=== PATIENT | male | born 1985 | race Caucasian/White ===

== ENCOUNTER 2016-04-29 04:16 | Inpatient (IN) | payer OTHER ==
[~2016-04-29] VITALS: Ht 177.8 cm; Wt 74.0 kg
[2016-04-29] VITALS (16 sets, daily range): BP systolic 91–185; BP diastolic 69–113; PULSE 84–152; RESP 14–25; TEMP 98–98.7; O2SAT 96–100
[2016-04-29] MEDS ORDERED: DIPHTH/TETANUS/ACEL PERTUSSIS (BOOSTER) 0.5 ML VIAL/PFS IM ONE (04:20)
[2016-04-29] MEDS ORDERED: MIDAZOLAM HCL 5 MG/ML VIAL (1 ML) ONE ×2 (04:26→04:57)
[2016-04-29] MEDS ORDERED: MORPHINE SULFATE 8 MG/ML INJ ONE (04:26)
[2016-04-29] MEDS ORDERED: ONDANSETRON HCL 4 MG/2 ML VIAL ONE (04:26)
[2016-04-29] MEDS ORDERED: LIDOCAINE 1%/EPINEPHrine 1:100,000 SOLN 20 ML VIAL ONE (04:29)
[2016-04-29 04:45] LABS: AUTOMATED NEUTROPHIL # 8.8 TH/MM3 (1.8-7.7); BASOPHIL # 0.1 TH/MM3 (0-0.2); BASOPHIL % 0.5 % (0.0-2.0); EOSINOPHIL # 0.1 TH/MM3 (0-0.4); EOSINOPHIL % 0.6 % (0.0-4.0); HEMATOCRIT 40.9 % (39.0-51.0); HEMO FLAGS DIFF FINAL; LYMPH % 31.6 % (9.0-44.0); LYMPHOCYTE # 4.4 TH/MM3 (1.0-4.8); MEAN CORPUSCULAR HEMOGLOBIN 29.6 PG (27.0-34.0); MEAN CORPUSCULAR HGB CONC 34.4 % (32.0-36.0); MONO % 4.6 % (0.0-8.0); NEUT % 62.7 % (16.0-70.0); PLATELET COUNT 285 TH/MM3 (150-450); RED BLOOD COUNT 4.75 MIL/MM3 (4.50-5.90); RED CELL DISTRIBUTION WIDTH 13.4 % (11.6-17.2); WHITE BLOOD COUNT 13.9 TH/MM3 (4.0-11.0)
[2016-04-29 04:48] LABS: APTT (PATIENT) 26.6 SEC (24.3-30.1); PROTHROMBIN TIME - PATIENT 11.6 SEC (9.8-11.6)
[2016-04-29 04:49] LABS: I-STAT POTASSIUM 3.5 MMOL/L (3.5-4.9)
[2016-04-29] MEDS ORDERED: NALOXONE HCL 0.4 MG/ML AMP IV PRN (05:00)
[2016-04-29] MEDS ORDERED: SODIUM CHLORIDE 0.9% FLUSH 5 ML FLUSH IVF PRN (05:00)
[2016-04-29] MEDS ORDERED: PROPOFOL 1000 MG/100 ML INJ 100 ML IV SCH (05:00)
[2016-04-29] MEDS ORDERED: Post-op Orders (for Pharmacy) MISC XX ONE (05:00)
[2016-04-29] MEDS ORDERED: fentaNYL DRIP 250 ML IV SCH (05:00)
[2016-04-29] MEDS ORDERED: ONDANSETRON HCL 4 MG/2 ML VIAL IV PRN (05:00)
[2016-04-29] MEDS ORDERED: IOHEXOL 350 MG/ML 10 ML VIAL (for RAD DIAG) IV ONE (05:12)
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
--- NOTE | 2016-04-29 05:32 | RADRPT ---
EXAM DATE/TIME: 04/29/2016 04:11 [facility] COMPARISON: No previous studies available for comparison. INDICATIONS : Post intubation and right side chest tube. MEDICAL HISTORY : None. SURGICAL HISTORY : None. ENCOUNTER: Subsequent ACUITY: 1 day PAIN SCORE: Non-responsive. LOCATION: Bilateral chest FINDINGS: Endotracheal tube tip at the inferior margin of the clavicles. Heart and mediastinal contours are nor mal. Right-sided pneumothorax is present and a right-sided chest tube is present and the tip overlies the right lung apex. Comminuted right clavicular fracture is seen, and extensive subcutaneous emphys jenifer along the right chest noted. Patchy opacity in the right upper lobe noted. CONCLUSION: Endotracheal tube and chest tubes as above with right-sided pneumothorax present on the right lateral mid to upper chest and right lung apex. Subcutaneous emphysema. Charlie Hernandez MD on April 29, 2016 at 5:29 Board Certified Radiologist. This report was verified electronically.
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
[2016-04-29 05:53] LABS: AMPHETAMINE, URINE NEG (NEG); BARBITURATES, URINE NEG (NEG); COCAINE, URINE NEG (NEG)
[2016-04-29] MEDS: SODIUM CHLOR 0.9% 1000 ML INJ 1,000 ML IV SCH ×3 (06:16→23:06)
[2016-04-29] MEDS: PANTOPRAZOLE SODIUM 40 MG VIAL IV SCH (06:28)
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
[2016-04-29] MEDS: DOCUSATE SODIUM 100 MG CAP PO SCH ×2 (07:27→19:47)
[2016-04-29] MEDS ORDERED: LORazepam 2 MG/ML VIAL IV PUSH PRN (07:30)
[2016-04-29] MEDS ORDERED: RESP: ALBUTEROL 2.5 MG/IPRATROPIUM 0.5 MG NEB (PRN) NEB (07:30)
[2016-04-29] MEDS: PROPOFOL 1000 MG/100 ML INJ 100 ML IV SCH ×3 (07:42→14:45)
[2016-04-29] MEDS ORDERED: CHLORHEXIDINE 0.12% (ORAL KIT) 15 ML CUP MT SCH (08:00)
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
[2016-04-29] MEDS: CHLORHEXIDINE 0.12% (ORAL KIT) 15 ML CUP MT SCH ×2 (08:20→19:14)
[2016-04-29] MEDS: RESP: ALBUTEROL 2.5 MG/IPRATROPIUM 0.5 MG NEB (SCH) NEB ×3 (08:33→19:23)
[2016-04-29] MEDS: SODIUM CHLORIDE 0.9% FLUSH 5 ML FLUSH IVF SCH ×2 (09:39→19:48)
[2016-04-29 09:58] LABS: MAGNESIUM 2.1 MG/DL (1.5-2.5)
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
[2016-04-29] MEDS: VALPROATE INJ 250 MG in SODIUM CHLORIDE 0.9% INJ 100 ML IV SCH ×2 (11:48→19:47)
[2016-04-29] MEDS ORDERED: MULTIVITAMIN INJ 10 ML, THIAMINE INJ 100 MG, FOLIC ACID INJ 1 MG in SODIUM CHLORID 0.9%... IV ONE (12:00)
[2016-04-29] MEDS: oxyCODONE/ACETAMINOPHEN 5 MG/325 MG TAB PO PRN (20:18)
[2016-04-30] VITALS (8 sets, daily range): BP systolic 125–137; BP diastolic 73–91; PULSE 88–114; RESP 16–18; TEMP 98–100; O2SAT 93–100
[2016-04-30] MEDS: oxyCODONE/ACETAMINOPHEN 5 MG/325 MG TAB PO PRN ×3 (00:13→09:39)
[2016-04-30] MEDS: RESP: ALBUTEROL 2.5 MG/IPRATROPIUM 0.5 MG NEB (SCH) NEB (03:17)
[2016-04-30] MEDS: PANTOPRAZOLE SODIUM 40 MG VIAL IV SCH (04:12)
[2016-04-30 04:31] LABS: AUTOMATED NEUTROPHIL # 4.3 TH/MM3 (1.8-7.7); BASOPHIL % 0.2 % (0.0-2.0); EOSINOPHIL % 0.3 % (0.0-4.0); HEMATOCRIT 27.3 % (39.0-51.0); HEMO FLAGS DIFF FINAL; LYMPH % 24.9 % (9.0-44.0); LYMPHOCYTE # 1.7 TH/MM3 (1.0-4.8); MEAN CELL VOLUME 85.6 FL (80.0-100.0); MEAN CORPUSCULAR HEMOGLOBIN 30.4 PG (27.0-34.0); MEAN CORPUSCULAR HGB CONC 35.5 % (32.0-36.0); MONO % 10.8 % (0.0-8.0); NEUT % 63.8 % (16.0-70.0); PLATELET COUNT 148 TH/MM3 (150-450); RED BLOOD COUNT 3.19 MIL/MM3 (4.50-5.90); RED CELL DISTRIBUTION WIDTH 13.6 % (11.6-17.2); WHITE BLOOD COUNT 6.8 TH/MM3 (4.0-11.0)
[2016-04-30 04:58] LABS: ALKALINE PHOSPHATASE 40 U/L (45-117); ALT (GPT) 78 U/L (12-78); ANION GAP 7 MEQ/L (5-15); AST (GOT) 127 U/L (15-37); BICARBONATE 27.3 MEQ/L (21.0-32.0); BLOOD UREA NITROGEN 10 MG/DL (7-18); CHLORIDE 107 MEQ/L (98-107); GLOMERULAR FILTRATION RATE 107 ML/MIN (>89); POTASSIUM 3.5 MEQ/L (3.5-5.1); SODIUM (NA) 141 MEQ/L (136-145); TOTAL BILIRUBIN ADULT 1.1 MG/DL (0.2-1.0)
--- NOTE | 2016-04-30 07:52 | MP ---
cc: GLEN NERI MD AKA: Filemon Vides DATE OF PROCEDURE 04/29/2016 PREOPERATIVE DIAGNOSIS Trauma to the chest, right-sided pneumothorax. POSTOPERATIVE DIAGNOSIS Trauma to the chest, right-sided pneumothorax. OPERATIVE PROCEDURE Right chest tube placement. SURGEON Dr. Neri ANESTHESIA 1% Xylocaine, 3 mg of Versed and 4 mg of morphine IV. PROCEDURE The patient is prepped and draped in the usual fashion, the area infiltrated with 1% Xylocaine, about 15 cc, between the fifth and sixth rib in the midaxillary line. The patient is given 4 mg of morphine and 3 mg of Versed and incision is made in the lateral chest, deepened now with a hemostat into the pleural cavity. Upon entrance of the pleural cavity, there is a gifford of air and then a 32-Yoruba chest tube is inserted in the posterior sulcus, sutured in place with 0-silk, connected to the Pleur-Evac. The patient has a small air leak with bubbling of the air and about 20 cc of blood. Glen HAIDER/DEANNE /5:15 AM /7:47 AM
--- NOTE | 2016-04-30 08:18 | RADRPT ---
EXAM DATE/TIME: 04/30/2016 06:52 [facility] COMPARISON: CHEST SINGLE AP, April 29, 2016, 4:11. INDICATIONS : Right pneumothorax. MEDICAL HISTORY: None. SURGICAL HISTORY: Chest tube, right. ENCOUNTER: Subsequent ACUITY: 2 days PAIN SCORE: 6/10 LOCATION: Right chest FINDINGS: There is no evidence of pneumothorax. A right-sided chest tube remains in good position. There is i nterval decrease in the subcutaneous emphysema within the right chest wall. An acute displaced mid c lavicular fracture is again noted on the right. Right basilar atelectasis is noted. The left lung i s clear. The heart is normal. CONCLUSION: 1. No pneumothorax. 2. Interval decrease in the subcutaneous emphysema in the right chest wall. 3. Bibasilar atelectasis. 4. Acute displaced mid clavicular fracture on the right. Ashish Wiggins MD on April 30, 2016 at 8:07 Board Certified Radiologist. This report was verified electronically.
[2016-04-30] MEDS ORDERED: VALPROIC ACID 250 MG CAP PO SCH (09:00)
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
[2016-04-30] MEDS: DOCUSATE SODIUM 50 MG/SENNA 8.6 MG TAB PO SCH ×2 (09:39→22:07)
[2016-04-30] MEDS: FAMOTIDINE 20 MG TAB PO SCH ×2 (09:39→22:06)
[2016-04-30] MEDS: DOCUSATE SODIUM 100 MG CAP PO SCH ×2 (09:40→22:06)
[2016-04-30] MEDS: KETOROLAC TROMETHAMINE 30 MG/ML (IVP) VIAL IV PUSH SCH ×3 (09:40→22:06)
[2016-04-30] MEDS: SODIUM CHLORIDE 0.9% FLUSH 5 ML FLUSH IVF SCH ×2 (09:41→21:00)
[2016-04-30] MEDS: METHOCARBAMOL 500 MG TAB PO SCH ×3 (09:43→22:08)
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
[2016-04-30] MEDS: LIDOCAINE HCL 5% PATCH TD SCH (11:56)
--- NOTE | 2016-04-30 14:29 | HHI.PR ---
Subjective Subjective Notes Feeling better Eating well Objective Vitals/I&O Vital Signs Date Time Temp Pulse Resp B/P Pulse Ox O2 Delivery O2 Flow Rate FiO2 04/30/16 12:00 98.2 101 18 130/79 93 04/30/16 10:00 21 04/29/16 22:40 Nasal Cannula 2.00 Labs Laboratory Tests Test 04/30/16 03:52 White Blood Count 6.8 Red Blood Count 3.19 Hemoglobin 9.7 Hematocrit 27.3 Mean Corpuscular Volume 85.6 Mean Corpuscular Hemoglobin 30.4 Mean Corpuscular Hemoglobin 35.5 Concent Red Cell Distribution Width 13.6 Platelet Count 148 Mean Platelet Volume 7.6 Neutrophils (%) (Auto) 63.8 Lymphocytes (%) (Auto) 24.9 Monocytes (%) (Auto) 10.8 Eosinophils (%) (Auto) 0.3 Basophils (%) (Auto) 0.2 Neutrophils # (Auto) 4.3 Lymphocytes # (Auto) 1.7 Monocytes # (Auto) 0.7 Eosinophils # (Auto) 0.0 Basophils # (Auto) 0.0 CBC Comment DIFF FINAL Differential Comment Sodium Level 141 Potassium Level 3.5 Chloride Level 107 Carbon Dioxide Level 27.3 Anion Gap 7 Blood Urea Nitrogen 10 Creatinine 0.85 Estimat Glomerular Filtration 107 Rate Random Glucose 109 Calcium Level 8.3 Phosphorus Level 1.8 Magnesium Level 2.0 Total Bilirubin 1.1 Aspartate Amino Transf 127 (AST/SGOT) Alanine Aminotransferase 78 (ALT/SGPT) Alkaline Phosphatase 40 Total Protein 5.6 Albumin 3.2 Radiology Last Impressions Chest X-Ray 04/30/16 0600 Signed Impressions: Service Date/Time: Saturday, April 30, 2016 06:52 - CONCLUSION: 1. No pneumothorax. 2. Interval decrease in the subcutaneous emphysema in the right chest wall. 3. Bibasilar atelectasis. 4. Acute displaced mid clavicular fracture on the right. Ashish Wiggins MD Pelvis X-Ray 04/29/16417 Signed Impressions: Service Date/Time: Friday, April 29, 2016 04:11 - CONCLUSION: No acute disease. Charlie Hernandez MD Head CT 04/29/16417 Signed Impressions: Service Date/Time: Friday, April 29, 2016 04:59 - CONCLUSION: Normal appearance of the brain. Scalp laceration and soft tissue swelling. Charlie Hernandez MD Chest CT 04/29/16417 Signed Impressions: Service Date/Time: Friday, April 29, 2016 05:04 - CONCLUSION: 1. Scattered areas of pulmonary consolidation characteristic of contusion. 2. Moderate right-sided pneumothorax with chest tube in place. Associated extensive subcutaneous emphysema. 3. Right rib fractures and clavicular fracture. 4. L2 vertebral body fracture. Charlie Hernandez MD Cervical Spine CT 04/29/16417 Signed Impressions: Service Date/Time: Friday, April 29, 2016 04:59 - CONCLUSION: Right rib fractures. No evidence for cervical spine fracture. Right apical pneumothorax. Charlie Hernandez MD Abdomen/Pelvis CT 04/29/16417 Signed Impressions: Service Date/Time: Friday, April 29, 2016 05:04 - CONCLUSION: 1. Right- sided pneumothorax with associated subcutaneous emphysema and pulmonary contusion. 2. L2 vertebral body fracture. Charlie Hernandez MD Narrative Exam GENERAL: 30 year old well-nourished, well developed male lying in bed. SKIN: Warm and dry. HEAD: Normocephalic. ENT: No nasal bleeding or discharge. Mucous membranes pink and moist. NECK: Trachea midline. No JVD. CARDIOVASCULAR: Regular rate and rhythm. RESPIRATORY: No accessory muscle use. Lungs clear and diminished to auscultation. Breath sounds equal bilaterally. Right lateral CT in place to waterseal. No air leak. GASTROINTESTINAL: Abdomen soft, non-tender, nondistended. + BS. MUSCULOSKELETAL: Extremities without cyanosis, or edema. No obvious deformities. NEUROLOGICAL: Awake and alert. Normal speech. A/P Assessment and Plan INJURIES: RIGHT parietal scalp lac RIGHT rib fxs (1, 3, 4) RIGHT PTX / BLAIR w/ CT placement RIGHT clavicle fx Aspiration Pulmonary contusions L2 fx (non-op) Diet: Regular, tolerating Pulmonary: Nebs. IS, encourage patient use. Pain: Percocet. Robaxin. Lidoderm patch. Toradol. Pain controlled. Activity: OOB with TLSO brace. PT and OT ordered. GI: Pepcid Bowel: Nuvia-colace 2 tabs. No BM yet. DVT: SCD's CXR from today shows no pneumothorax, no air leak noted. Chest tube placed to waterseal. Plan to DC CT tomorrow if CXR shows no PTX. Neurosurgery recommends TLSO brace when OOB for lumbar fracture. Plan of care discussed with patient and his father at bedside. Plan to discharge home in 1-2 days. Celso Lisa Apr 30, 2016 14:29
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
[2016-04-30] MEDS: IBUPROFEN 400 MG TAB PO SCH ×2 (16:07→22:08)
[2016-04-30] MEDS: REMOVE OLD PATCH T-DERMAL SCH (21:00)
[2016-05-01] VITALS: BP 143/97; PULSE 94; RESP 18; TEMP 97.1; O2SAT 100
[2016-05-01] MEDS: oxyCODONE/ACETAMINOPHEN 5 MG/325 MG TAB PO PRN (00:33)
[2016-05-01] MEDS: KETOROLAC TROMETHAMINE 30 MG/ML (IVP) VIAL IV PUSH SCH ×4 (03:00→20:21)
[2016-05-01] MEDS: METHOCARBAMOL 500 MG TAB PO SCH ×3 (05:30→22:23)
[2016-05-01 05:39] LABS: AUTOMATED NEUTROPHIL # 3.2 TH/MM3 (1.8-7.7); BASOPHIL % 0.6 % (0.0-2.0); EOSINOPHIL # 0.1 TH/MM3 (0-0.4); EOSINOPHIL % 2.6 % (0.0-4.0); HEMATOCRIT 25.2 % (39.0-51.0); HEMO FLAGS DIFF FINAL; LYMPH % 23.1 % (9.0-44.0); LYMPHOCYTE # 1.1 TH/MM3 (1.0-4.8); MEAN CELL VOLUME 85.4 FL (80.0-100.0); MEAN CORPUSCULAR HGB CONC 35.1 % (32.0-36.0); NEUT % 64.7 % (16.0-70.0); PLATELET COUNT 135 TH/MM3 (150-450); RED BLOOD COUNT 2.95 MIL/MM3 (4.50-5.90); RED CELL DISTRIBUTION WIDTH 13.1 % (11.6-17.2); WHITE BLOOD COUNT 4.9 TH/MM3 (4.0-11.0)
[2016-05-01] MEDS: IBUPROFEN 400 MG TAB PO SCH ×3 (05:42→22:00)
[2016-05-01 05:57] LABS: ALT (GPT) 62 U/L (12-78); ANION GAP 8 MEQ/L (5-15); AST (GOT) 91 U/L (15-37); BICARBONATE 25.4 MEQ/L (21.0-32.0); BLOOD UREA NITROGEN 9 MG/DL (7-18); CHLORIDE 108 MEQ/L (98-107); GLOMERULAR FILTRATION RATE 120 ML/MIN (>89); POTASSIUM 3.7 MEQ/L (3.5-5.1); SODIUM (NA) 141 MEQ/L (136-145)
[2016-05-01 05:59] LABS: ALKALINE PHOSPHATASE 37 U/L (45-117); TOTAL BILIRUBIN ADULT 1.3 MG/DL (0.2-1.0)
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
[2016-05-01 08:00] VITALS: BP 136/93; PULSE 85; RESP 18; TEMP 97.9; O2SAT 97
[2016-05-01] MEDS: DOCUSATE SODIUM 50 MG/SENNA 8.6 MG TAB PO SCH ×2 (08:26→20:22)
[2016-05-01] MEDS: FAMOTIDINE 20 MG TAB PO SCH ×2 (08:26→20:21)
[2016-05-01] MEDS: SODIUM CHLORIDE 0.9% FLUSH 5 ML FLUSH IVF SCH ×2 (08:26→20:25)
[2016-05-01] MEDS: DOCUSATE SODIUM 100 MG CAP PO SCH ×2 (08:26→20:22)
[2016-05-01] MEDS: LIDOCAINE HCL 5% PATCH TD SCH (08:26)
[2016-05-01 12:00] VITALS: BP 133/88; PULSE 88; RESP 18; TEMP 98.1; O2SAT 97
[2016-05-01 16:00] VITALS: BP 135/83; PULSE 82; RESP 19; TEMP 98.7; O2SAT 98
[2016-05-01] MEDS ORDERED: LACTULOSE SYRUP 20 GM/30 ML CUP PO ONE (17:00)
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
[2016-05-01 20:00] VITALS: BP 142/94; PULSE 87; RESP 18; TEMP 98.2; O2SAT 99
[2016-05-01] MEDS: REMOVE OLD PATCH T-DERMAL SCH (20:24)
[2016-05-02] VITALS: BP 132/89; PULSE 79; RESP 18; TEMP 97; O2SAT 100
[2016-05-02] MEDS: KETOROLAC TROMETHAMINE 30 MG/ML (IVP) VIAL IV PUSH SCH (03:00)
[2016-05-02] MEDS: METHOCARBAMOL 500 MG TAB PO SCH ×3 (05:33→21:34)
[2016-05-02] MEDS: IBUPROFEN 400 MG TAB PO SCH ×3 (05:33→21:33)
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
[2016-05-02] MEDS: oxyCODONE/ACETAMINOPHEN 5 MG/325 MG TAB PO PRN ×4 (07:53→21:34)
[2016-05-02] MEDS: DOCUSATE SODIUM 50 MG/SENNA 8.6 MG TAB PO SCH ×2 (07:57→20:07)
[2016-05-02] MEDS: FAMOTIDINE 20 MG TAB PO SCH ×2 (07:58→20:07)
[2016-05-02] MEDS: SODIUM CHLORIDE 0.9% FLUSH 5 ML FLUSH IVF SCH ×2 (07:58→20:07)
[2016-05-02 08:00] VITALS: BP 143/74; PULSE 86; RESP 20; TEMP 97.3; O2SAT 100
[2016-05-02] MEDS: LIDOCAINE HCL 5% PATCH TD SCH (08:02)
[2016-05-02] MEDS ORDERED: KETOROLAC TROMETHAMINE 30 MG/ML (IVP) VIAL IV PUSH PRN (09:00)
[2016-05-02 12:00] VITALS: BP 137/76; PULSE 65; RESP 18; TEMP 97; O2SAT 98
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
[2016-05-02] MEDS ORDERED: LACTULOSE SYRUP 20 GM/30 ML CUP PO ONE (14:00)
[2016-05-02] MEDS: ENOXAPARIN SODIUM 40 MG/0.4 ML SYRINGE SQ SCH (14:11)
--- NOTE | 2016-05-02 14:57 | RADRPT ---
EXAM DATE/TIME: 05/02/2016 13:59 [facility] COMPARISON: CHEST SINGLE AP, May 02, 2016, 6:18. INDICATIONS : Evaluate for pneumothorax. MEDICAL HISTORY : None. SURGICAL HISTORY : Appendectomy. Tonsillectomy. ENCOUNTER: Subsequent ACUITY: 4 - 6 days PAIN SCORE: 0/10 LOCATION: chest FINDINGS: A single view of the chest demonstrates right-sided thoracostomy tube without pneumothorax. There are some deep tissue emphysematous changes about the right hemithorax. Displaced right clavicular diaphy seal fracture. Osseous structures are otherwise intact. Heart size is normal. CONCLUSION: 1. Right-sided thoracostomy tube without pneumothorax. Lungs are clear. 2. Right clavicular diaphyseal fracture. Martinez Foster MD on May 02, 2016 at 14:41 Board Certified Radiologist. This report was verified electronically.
[2016-05-02 16:00] VITALS: BP 132/92; PULSE 88; RESP 18; TEMP 96.8; O2SAT 98
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
[2016-05-02 20:00] VITALS: BP 133/93; PULSE 78; RESP 21; TEMP 96.1; O2SAT 98
[2016-05-02] MEDS: REMOVE OLD PATCH T-DERMAL SCH (20:07)
[2016-05-03 00:07] VITALS: BP 121/65; PULSE 75; RESP 20; TEMP 96.8; O2SAT 93
[2016-05-03] MEDS ORDERED: SENN1TAB PO (00:12)
[2016-05-03] MEDS ORDERED: IBUP400T20 PO (00:12)
[2016-05-03] MEDS: IBUPROFEN 400 MG TAB PO SCH ×2 (05:35→13:51)
[2016-05-03] MEDS: METHOCARBAMOL 500 MG TAB PO SCH ×2 (05:36→13:51)
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
[2016-05-03 08:00] VITALS: BP 130/79; PULSE 77; RESP 18; TEMP 95.9; O2SAT 98
[2016-05-03] MEDS: DOCUSATE SODIUM 50 MG/SENNA 8.6 MG TAB PO SCH (08:04)
[2016-05-03] MEDS: oxyCODONE/ACETAMINOPHEN 5 MG/325 MG TAB PO PRN ×2 (08:04→12:47)
[2016-05-03] MEDS: FAMOTIDINE 20 MG TAB PO SCH (08:04)
[2016-05-03] MEDS: LIDOCAINE HCL 5% PATCH TD SCH (08:05)
[2016-05-03] MEDS: SODIUM CHLORIDE 0.9% FLUSH 5 ML FLUSH IVF SCH (08:05)
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
[2016-05-03] MEDS ORDERED: PERC5TAB12 PO (11:40)
[2016-05-03 12:00] VITALS: BP 131/85; PULSE 75; RESP 16; TEMP 96.8; O2SAT 99
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
[2016-05-03] MEDS: ENOXAPARIN SODIUM 40 MG/0.4 ML SYRINGE SQ SCH (13:52)
[2016-05-03 14:51] VITALS: RESP 18
== END 2016-05-03 15:57 | disposition home or self-care (01) | DRG 964 ==
LOC: NEPI 04:16 → NEDA 05:03 → EDBD 05:03 → N03B 05:21 → N07A 22:22
PROVIDERS: ADMIT Surgery; ATTEND Surgery
PROC: 0W9930Z Drainage of Right Pleural Cavity with Drainage Device, Percutaneous Approach (ICD-10-PCS; principal; 2016-04-29)
PROC: 5A1935Z Respiratory Ventilation, Less than 24 Consecutive Hours (ICD-10-PCS; 2016-04-29)
PROC: 0BH17EZ Insertion of Endotracheal Airway into Trachea, Via Natural or Artificial Opening (ICD-10-PCS; 2016-04-29)
PROC: 0HQ0XZZ Repair Scalp Skin, External Approach (ICD-10-PCS; 2016-04-29)
DX: S27.0XXA Traumatic pneumothorax, initial encounter (principal); S32.029A Unspecified fracture of second lumbar vertebra, initial encounter for closed fracture; S06.9X9A Unspecified intracranial injury with loss of consciousness of unspecified duration, initial encounter; S27.322A Contusion of lung, bilateral, initial encounter; T17.900A Unspecified foreign body in respiratory tract, part unspecified causing asphyxiation, initial encounter; S22.41XA Multiple fractures of ribs, right side, initial encounter for closed fracture; S01.01XA Laceration without foreign body of scalp, initial encounter; S42.034A Nondisplaced fracture of lateral end of right clavicle, initial encounter for closed fracture; R41.2 Retrograde amnesia; Y90.1 Blood alcohol level of 20-39 mg/100 ml; T79.7XXA Traumatic subcutaneous emphysema, initial encounter; Y93.89 Activity, other specified; Y92.410 Unspecified street and highway as the place of occurrence of the external cause; Y99.9 Unspecified external cause status; F10.129 Alcohol abuse with intoxication, unspecified; V47.9XXA Unspecified car occupant injured in collision with fixed or stationary object in traffic accident, initial encounter
CPT/HCPCS: 31500; 32551; 70450; 71010; 71260; 72125; 72170; 74177; 80053; 80307; 82435; 82565; 82947; 83735; 84100; 84132; 84295; 84520; 85025; 85610; 85730; 86850; 86900; 86901; 86920; 87641; 90471; 90715; 94002; 94150; 94640; 94664; 96374; 96375; 99291; C9113; G0390; J0690; J1650; J1885; J2250; J2270; J2405; J3010; J3411; J7030; J7040; L0150; L0484; Q9967